=== PATIENT | female | born 1970 | race Asian ===

== ENCOUNTER 2020-07-30 09:33 | Day surgery (SDC) | payer OTHER, SELFPAY ==
[~2020-07-30] VITALS: Ht 167.6 cm; Wt 68.0 kg
[2020-07-30 10:36] LABS: HCG,QUAL RESULT NEGATIVE (NEGATIVE)
[2020-07-30] MEDS ORDERED: PROPOFOL 200MG/ 20ML VIAL (DIPRIVAN) IV ONE (11:22)
[2020-07-30] MEDS ORDERED: LR 1,000 ML IV.SOLN IV ONE (11:22)
[2020-07-30] MEDS ORDERED: DEXAMETHASONE SOD PHOSPHATE 4 MG/ML VIAL IVP ONE (11:22)
[2020-07-30] MEDS ORDERED: MIDAZOLAM HCL 5 MG/5 ML VIAL IVP ONE (11:22)
[2020-07-30] MEDS ORDERED: fentaNYL CITRATE/PF 100 MCG/2 ML AMP IVP ONE (11:22)
[2020-07-30] MEDS ORDERED: SEVOFLURANE 15 MIN GAS INH ONE (11:22)
[2020-07-30] MEDS ORDERED: NS 1000 ML IV.SOLN IV ONE (11:22)
[2020-07-30] MEDS ORDERED: METOCLOPRAMIDE HCL 10 MG/2 ML VIAL IVP ONE (11:22)
[2020-07-30] MEDS ORDERED: ONDANSETRON HCL 4 MG/2 ML VIAL IVP PRN (12:00)
[2020-07-30] MEDS ORDERED: LR 1,000 ML IV SCH (12:00)
[2020-07-30] MEDS ORDERED: MEPERIDINE HCL/PF 25 MG/ML DISP.SYRIN IVP PRN (12:00)
[2020-07-30] MEDS ORDERED: MIDAZOLAM HCL 2 MG/2 ML VIAL (VERSED) IVP PRN (12:00)
[2020-07-30] MEDS ORDERED: HYDROmorphone 1 MG/ML INJ. CARTRIDGE IVP PRN ×2 (12:00)
[2020-07-30] MEDS ORDERED: HYDROmorphone 1 MG/ML INJ. CARTRIDGE ONE (13:05)
[2020-07-30 14:10] VITALS: BP_SYST 127
[2020-07-30] MEDS ORDERED: KETOROLAC TROMETHAMINE 30 MG VIAL ONE (15:26)
[2020-07-30] MEDS ORDERED: KETOROLAC TROMETHAMINE 30 MG VIAL IVP ONE (15:30)
== END 2020-07-30 16:25 | disposition home or self-care (01) ==
LOC: SDS 09:33 → SMU 09:35 → SDS 16:25
PROVIDERS: ATTEND Obstetrics & Gynecology
DX: N92.0 Excessive and frequent menstruation with regular cycle (principal); D25.1 Intramural leiomyoma of uterus; D26.0 Other benign neoplasm of cervix uteri; D64.9 Anemia, unspecified; Z20.822 Contact with and (suspected) exposure to COVID-19; Z79.899 Other long term (current) drug therapy
CPT/HCPCS: 36415; 58563; 84703; 86886; 86900; 86901; 88305; J1100; J1170; J1885; J2250; J2704; J2765; J3010; J7030; J7120; U0003